=== PATIENT | male | born 1965 | race Caucasian/White ===

== ENCOUNTER 2018-06-23 11:36 | Emergency (ER) | payer OTHER, MEDICAID, SELFPAY ==
[2018-06-23 11:40] VITALS: BP 125/80; PULSE 77; RESP 18; TEMP 36.4; O2SAT 95
--- NOTE | 2018-06-23 12:01 | DI.RAD.S_ITS ---
PROCEDURE: XR FINGER LT MIN 2V INDICATIONS: trauma TO LEFT 3 DIGIT TECHNIQUE: AP hand, 2 views of the third finger(s) acquired. COMPARISON: None. FINDINGS: Bones: There is a crush injury with amputation of a portion of the distal phalanx and digit, third ray. The distal end of phalangeal articular margins appear intact. A significant portion of the third distal phalanx beyond that point is absent. A portion of the far distal tuft remains, however. This appears contiguous along the lateral border of the phalanx.. No suspicious bony lesions. Soft tissues: No suspicious soft tissue calcifications. IMPRESSION: Partial amputation third distal phalanx. No definite foreign body material seen. Dictated by: Isaak Paige M.D. on 06/23/2018 at 12:19 Approved by: Isaak Paige M.D. on 06/23/2018 at 12:24
--- NOTE | 2018-06-23 12:34 | ED.UPPEXIN ---
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 He has applied pressure and bleeding is better. He states it is painful. He states that he can move it without difficulty. No numbness. He denies any other injury. He thinks he had a tetanus vaccine a couple of years ago but not positive about that. This happened at work. last p.o. 9:30 a.m. Related Data Home Medications Medication Instructions Recorded Confirmed fenofibrate 54 mg PO DAILY 06/23/18 06/23/18 ibuprofen 600 mg PO Q6H PRN 06/23/18 06/23/18 latanoprost 1 drp OPHTHALMIC (EYE) BEDTIME 06/23/18 06/23/18 lisinopril-hydrochlorothiazide 1 tab PO DAILY 06/23/18 06/23/18 metoprolol tartrate 100 mg PO BID 06/23/18 06/23/18 sertraline 100 mg PO DAILY 06/23/18 Previous Rx's Medication Instructions Recorded cephalexin 500 mg PO Q8H 7 Days #21 cap 06/23/18 hydrocodone-acetaminophen 1 tab PO Q6H PRN #16 tab 06/23/18 Allergies Allergy/AdvReac Type Severity Reaction Status Date / Time Tetracyclines Allergy Verified 06/23/18 11:44 Review of Systems <Vera Palacios PA-C - Last Filed: 06/23/18 16:13> Review of Systems ROS Unobtainable: All systems reviewed & are unremarkable except as noted in HPI and below PFSH <Vera Palacios PA-C - Last Filed: 06/23/18 16:13> Medical History Anxiety (Chronic) HTN (hypertension) (Chronic) No pertinent family history (Chronic) Surgical History No pertinent past surgical history (Chronic) Social History Smoking Status: Former smoker Social History Smoking Status: Former smoker Exam <Vera Palacios PA-C - Last Filed: 06/23/18 16:13> Narrative Exam Narrative: GENERAL APPEARANCE: Patient sitting comfortably, in no distress. LUNGS: Clear to auscultation bilaterally. HEART: Rate and rhythm regular without murmur, normal S1 and S2, no S3 or S4. DERMATOLOGIC: left middle finger there is a partial distal amputation across the distal phalanx and tuft which crosses the PIP joint. The inferior portion and finger pad are intact, part of the tuft is visible. Minimal oozing MS: L. MF full AROM with tendon strength intact against resistance NEUROVASCULAR: Remaining portion of the left middle finger tip is warm and pink, sensation grossly intact over the finger Initial Vital Signs Initial Vital Signs: Vital Signs Temperature 97.6 F 06/23/18 11:40 Pulse Rate 77 06/23/18 11:40 Respiratory Rate 18 06/23/18 11:40 Blood Pressure 125/80 06/23/18 11:40 Pulse Oximetry 95 06/23/18 11:40 <Bruna Mariscal DO - Last Filed: 06/24/18 07:47> Initial Vital Signs Initial Vital Signs: Vital Signs Temperature 97.6 F 06/23/18 11:40 Pulse Rate 77 06/23/18 11:40 Respiratory Rate 18 06/23/18 11:40 Blood Pressure 125/80 06/23/18 11:40 Pulse Oximetry 95 06/23/18 11:40 Procedures <LOCO Pan Last Filed: 06/23/18 16:13> Laceration Repair Laceration 1: Site: hand Side (If applicable): left Size (cm): 1 Description: linear Depth: simple, single layer Local Anesthetic: lidocaine 1% Amount of anesthesia used (mL): 5 Pre-repair: wound explored and irrigated extensively Skin layer closed with: nylon Size (cm): 5-0 Number of sutures: 2 Technique: simple, interrupted Course <LOCO Pan Last Filed: 06/23/18 16:13> Additional Information: Spoke with Dr. Lind who is specifications writer for surgery. He reviewed xrays and advised that this may need some revision but can be seen and arranged as an outpatient. Advised dressing and splint and to have patient call his office to be seen first of next week. digital block was placed and the wound thoroughly cleaned. I did place a couple of loose sutures 1 on each side of the wound to help hold the remaining skin together. Nonstick bulky dressing placed with a prefab splint. Patient will call after discharged to set up follow-up with Orthopedics early next week. Signs and symptoms of infection reviewed and he will return right away if any. L and I paperwork completed. Orders Ordered: Discontinued Medications Hydrocodone Bitart/Acetaminophen ([place] 5/325) 1 tab PO NOW ONE Stop: 06/23/18 12:50 Last Admin: 06/23/18 12:54 Dose: 1 tab Diphtheria/Tetanus/Acell Pertussis (Adacel) 0.5 ml IM .ONCE ONE Stop: 06/23/18 12:37 Last Admin: 06/23/18 12:37 Dose: 0.5 ml Ibuprofen (Advil) 800 mg PO NOW ONE Stop: 06/23/18 12:50 Last Admin: 06/23/18 12:53 Dose: 800 mg Vital Signs - 8 hr 06/23/18 11:40 06/23/18 14:59 Temperature 97.6 F Pulse Rate 77 69 Respiratory Rate 18 18 Blood Pressure 125/80 117/71 Pulse Oximetry 95 94 <Bruna Mariscal DO - Last Filed: 06/24/18 07:47> Orders Ordered: Discontinued Medications Hydrocodone Bitart/Acetaminophen ([place] 5/325) 1 tab PO NOW ONE Stop: 06/23/18 12:50 Last Admin: 06/23/18 12:54 Dose: 1 tab Diphtheria/Tetanus/Acell Pertussis (Adacel) 0.5 ml IM .ONCE ONE Stop: 06/23/18 12:37 Last Admin: 06/23/18 12:37 Dose: 0.5 ml Ibuprofen (Advil) 800 mg PO NOW ONE Stop: 06/23/18 12:50 Last Admin: 06/23/18 12:53 Dose: 800 mg Vital Signs - 8 hr 06/23/18 11:40 06/23/18 14:59 Temperature 97.6 F Pulse Rate 77 69 Respiratory Rate 18 18 Blood Pressure 125/80 117/71 Pulse Oximetry 95 94 Discharge Plan Departure Patient Disposition: Home Clinical Impression: Open fracture of tuft of distal phalanx of finger Partial traumatic transphalangeal amputation of finger Qualifiers: Encounter type: initial encounter Qualified Code(s): S68.629A - Partial traumatic transphalangeal amputation of unspecified finger, initial encounter Discharge Date/Time: 06/23/18 14:59 Interventions: ED Discharge Assessment Last Done: 06/23/18 14:59 Instructions: DI for Finger Fracture, DI for Traumatic Amputation Activity Restrictions/Additional Instructions: please keep your finger in the splint and clean and dry. I have placed a couple of loose sutures to help keep the remaining skin together. Monitor the skin around for any signs of infection, i.e. draining pus, redness, increased swelling, fever. Please return, see Orthopedics or your PCP right away if any of these occur. Please sweet pickled fruit maker the antibiotic and start right away, take this for 1 week to help prevent infection. Please call Orthopedics (I spoke with Dr. Lind who was specifications writer today) and let them know you were seen in the emergency room, for an open fracture and partial amputation of your finger, and that he wants to see you early next week for follow-up so that they can get she was scheduled. Take your Ibuprofen at home for pain and you can add the hydrocodone/acetaminophen to this as needed (do not drive when taking that as it could make you sleepy) Prescriptions: New hydrocodone-acetaminophen 5-325 mg tablet 1 tab PO Q6H PRN (Reason: acute fracture/amputation) Qty: 16 RF: 0 cephalexin 500 mg capsule 500 mg PO Q8H 7 Days Qty: 21 RF: 0 No Action latanoprost 0.005 % drops 1 drp ophthalmic (eye) BEDTIME RF: 0 metoprolol tartrate 100 mg tablet 100 mg PO BID RF: 0 sertraline 100 mg tablet 100 mg PO DAILY RF: 0 lisinopril-hydrochlorothiazide 20-25 mg tablet 1 tab PO DAILY RF: 0 ibuprofen 600 mg tablet 600 mg PO Q6H PRN (Reason: Pain, Mild) RF: 0 fenofibrate 54 mg tablet 54 mg PO DAILY RF: 0 Referrals: Km Lind MD [Physician] - Mikal Kearns MD [Non-Staff] - <Bruna Mariscal DO - Last Filed: 06/24/18 07:47> Cosign ED Attending Cosfeliceature Attestation: I was immediately available in the department for consultation. Documentation has been reviewed. I agree with assessment and plan.
[2018-06-23] MEDS: TET,DIPH,PERTUSS(ACELL),VAC/PF 0.5 ML SYRINGE IM (12:37)
--- NOTE | 2018-06-23 12:46 | ED_ITS ---
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 He has applied pressure and bleeding is better. He states it is painful. He states that he can move it without difficulty. No numbness. He denies any other injury. He thinks he had a tetanus vaccine a couple of years ago but not positive about that. This happened at work. last p.o. 9:30 a.m. Related Data Home Medications Medication Instructions Recorded Confirmed fenofibrate 54 mg PO DAILY 06/23/18 06/23/18 ibuprofen 600 mg PO Q6H PRN 06/23/18 06/23/18 latanoprost 1 drp OPHTHALMIC (EYE) BEDTIME 06/23/18 06/23/18 lisinopril-hydrochlorothiazide 1 tab PO DAILY 06/23/18 06/23/18 metoprolol tartrate 100 mg PO BID 06/23/18 06/23/18 sertraline 100 mg PO DAILY 06/23/18 Previous Rx's Medication Instructions Recorded cephalexin 500 mg PO Q8H 7 Days #21 cap 06/23/18 hydrocodone-acetaminophen 1 tab PO Q6H PRN #16 tab 06/23/18 Allergies Allergy/AdvReac Type Severity Reaction Status Date / Time Tetracyclines Allergy Verified 06/23/18 11:44 Review of Systems <Vera Palacios PA-C - Last Filed: 06/23/18 16:13> Review of Systems ROS Unobtainable: All systems reviewed & are unremarkable except as noted in HPI and below PFSH <Vera Palacios PA-C - Last Filed: 06/23/18 16:13> Medical History Anxiety (Chronic) HTN (hypertension) (Chronic) No pertinent family history (Chronic) Surgical History No pertinent past surgical history (Chronic) Social History Smoking Status: Former smoker Social History Smoking Status: Former smoker Exam <Vera Palacios PA-C - Last Filed: 06/23/18 16:13> Narrative Exam Narrative: GENERAL APPEARANCE: Patient sitting comfortably, in no distress. LUNGS: Clear to auscultation bilaterally. HEART: Rate and rhythm regular without murmur, normal S1 and S2, no S3 or S4. DERMATOLOGIC: left middle finger there is a partial distal amputation across the distal phalanx and tuft which crosses the PIP joint. The inferior portion and finger pad are intact, part of the tuft is visible. Minimal oozing MS: L. MF full AROM with tendon strength intact against resistance NEUROVASCULAR: Remaining portion of the left middle finger tip is warm and pink, sensation grossly intact over the finger Initial Vital Signs Initial Vital Signs: Vital Signs Temperature 97.6 F 06/23/18 11:40 Pulse Rate 77 06/23/18 11:40 Respiratory Rate 18 06/23/18 11:40 Blood Pressure 125/80 06/23/18 11:40 Pulse Oximetry 95 06/23/18 11:40 <Bruna Mariscal DO - Last Filed: 06/24/18 07:47> Initial Vital Signs Initial Vital Signs: Vital Signs Temperature 97.6 F 06/23/18 11:40 Pulse Rate 77 06/23/18 11:40 Respiratory Rate 18 06/23/18 11:40 Blood Pressure 125/80 06/23/18 11:40 Pulse Oximetry 95 06/23/18 11:40 Procedures <LOCO Pan Last Filed: 06/23/18 16:13> Laceration Repair Laceration 1: Site: hand Side (If applicable): left Size (cm): 1 Description: linear Depth: simple, single layer Local Anesthetic: lidocaine 1% Amount of anesthesia used (mL): 5 Pre-repair: wound explored and irrigated extensively Skin layer closed with: nylon Size (cm): 5-0 Number of sutures: 2 Technique: simple, interrupted Course <LOCO Pan Last Filed: 06/23/18 16:13> Additional Information: Spoke with Dr. Lind who is transmission operator for surgery. He reviewed xrays and advised that this may need some revision but can be seen and arranged as an outpatient. Advised dressing and splint and to have patient call his office to be seen first of next week. digital block was placed and the wound thoroughly cleaned. I did place a couple of loose sutures 1 on each side of the wound to help hold the remaining skin together. Nonstick bulky dressing placed with a prefab splint. Patient will call after discharged to set up follow-up with Orthopedics early next week. Signs and symptoms of infection reviewed and he will return right away if any. L and I paperwork completed. Orders Ordered: Discontinued Medications Hydrocodone Bitart/Acetaminophen ([place] 5/325) 1 tab PO NOW ONE Stop: 06/23/18 12:50 Last Admin: 06/23/18 12:54 Dose: 1 tab Diphtheria/Tetanus/Acell Pertussis (Adacel) 0.5 ml IM .ONCE ONE Stop: 06/23/18 12:37 Last Admin: 06/23/18 12:37 Dose: 0.5 ml Ibuprofen (Advil) 800 mg PO NOW ONE Stop: 06/23/18 12:50 Last Admin: 06/23/18 12:53 Dose: 800 mg Vital Signs - 8 hr 06/23/18 11:40 06/23/18 14:59 Temperature 97.6 F Pulse Rate 77 69 Respiratory Rate 18 18 Blood Pressure 125/80 117/71 Pulse Oximetry 95 94 <Bruna Mariscal DO - Last Filed: 06/24/18 07:47> Orders Ordered: Discontinued Medications Hydrocodone Bitart/Acetaminophen ([place] 5/325) 1 tab PO NOW ONE Stop: 06/23/18 12:50 Last Admin: 06/23/18 12:54 Dose: 1 tab Diphtheria/Tetanus/Acell Pertussis (Adacel) 0.5 ml IM .ONCE ONE Stop: 06/23/18 12:37 Last Admin: 06/23/18 12:37 Dose: 0.5 ml Ibuprofen (Advil) 800 mg PO NOW ONE Stop: 06/23/18 12:50 Last Admin: 06/23/18 12:53 Dose: 800 mg Vital Signs - 8 hr 06/23/18 11:40 06/23/18 14:59 Temperature 97.6 F Pulse Rate 77 69 Respiratory Rate 18 18 Blood Pressure 125/80 117/71 Pulse Oximetry 95 94 Discharge Plan Departure Patient Disposition: Home Clinical Impression: Open fracture of tuft of distal phalanx of finger Partial traumatic transphalangeal amputation of finger Qualifiers: Encounter type: initial encounter Qualified Code(s): S68.629A - Partial traumatic transphalangeal amputation of unspecified finger, initial encounter Discharge Date/Time: 06/23/18 14:59 Interventions: ED Discharge Assessment Last Done: 06/23/18 14:59 Instructions: DI for Finger Fracture, DI for Traumatic Amputation Activity Restrictions/Additional Instructions: please keep your finger in the splint and clean and dry. I have placed a couple of loose sutures to help keep the remaining skin together. Monitor the skin around for any signs of infection, i.e. draining pus, redness, increased swelling, fever. Please return, see Orthopedics or your PCP right away if any of these occur. Please pickle maker the antibiotic and start right away, take this for 1 week to help prevent infection. Please call Orthopedics (I spoke with Dr. Lind who was transmission operator today) and let them know you were seen in the emergency room, for an open fracture and partial amputation of your finger, and that he wants to see you early next week for follow-up so that they can get she was scheduled. Take your Ibuprofen at home for pain and you can add the hydrocodone/acetaminophen to this as needed (do not drive when taking that as it could make you sleepy) Prescriptions: New hydrocodone-acetaminophen 5-325 mg tablet 1 tab PO Q6H PRN (Reason: acute fracture/amputation) Qty: 16 RF: 0 cephalexin 500 mg capsule 500 mg PO Q8H 7 Days Qty: 21 RF: 0 No Action latanoprost 0.005 % drops 1 drp ophthalmic (eye) BEDTIME RF: 0 metoprolol tartrate 100 mg tablet 100 mg PO BID RF: 0 sertraline 100 mg tablet 100 mg PO DAILY RF: 0 lisinopril-hydrochlorothiazide 20-25 mg tablet 1 tab PO DAILY RF: 0 ibuprofen 600 mg tablet 600 mg PO Q6H PRN (Reason: Pain, Mild) RF: 0 fenofibrate 54 mg tablet 54 mg PO DAILY RF: 0 Referrals: Km Lind MD [Physician] - Mikal Kearns MD [Non-Staff] - <Bruna Mariscal DO - Last Filed: 06/24/18 07:47> Cosign ED Attending Cosfeliceature Attestation: I was immediately available in the department for consultation. Documentation has been reviewed. I agree with assessment and plan.
[2018-06-23] MEDS: IBUPROFEN 400 MG TABLET 800 MG PO (12:53)
[2018-06-23] MEDS: HYDROCODONE/ACET 5/325 TABLET 1 TAB PO (12:54)
[2018-06-23 14:59] VITALS: BP 117/71; PULSE 69; RESP 18; O2SAT 94
== END 2018-06-23 14:59 | disposition home or self-care (01) ==
PROVIDERS: Emergency Provider Internal Medicine
DX: S68.629A Partial traumatic transphalangeal amputation of unspecified finger, initial encounter (principal); W31.2XXA Contact with powered woodworking and forming machines, initial encounter; Y99.0 Civilian activity done for income or pay
CPT/HCPCS: 12001; 73140; 90471; 99283; 90715